=== PATIENT | female | born 1995 | race Caucasian/White ===

== ENCOUNTER 2017-03-21 21:46 | Emergency (ER) | payer OTHER ==
[~2017-03-21] VITALS: Ht 157.5 cm; Wt 49.5 kg
[2017-03-21 22:02] VITALS: Ht 157.5 cm; Wt 49.5 kg
[2017-03-21] MEDS ORDERED: HC1C30 TOP (22:59)
[2017-03-21] MEDS ORDERED: BEN25 PO (22:59)
--- NOTE | 2017-03-21 23:03 | ERD ---
ER Documentation Chief Complaint Date/Time DATE: 03/21/17 TIME: 23:01 Chief Complaint few rash comes and goes HPI 21-year-old female presents with multiple localized rashes to her upper extremities and lower extremities that she has had for about 3 days. She states at rest she has no itchiness when she touches of the itch. She denies any new soaps foods or irritants that she can think of. She denies any fever. She denies any swelling of her lips or tongue or any respiratory distress. She has not tried any medications for this. ROS All systems reviewed and are negative except as per history of present illness. Medications Home Meds Active Scripts Hydrocortisone* Topical (Hydrocortisone* Topical) 1%-28.35 Gm Cream..g., 1 APPLIC TOP Q6 Y for ITCHING, #1 TUB Prov:AGAPITO LIAO PA-C 03/21/17 Diphenhydramine Hcl* (Benadryl*) 25 Mg Cap, 25 MG PO Q6, #30 CAP Prov:AGAPITO LIAO PA-C 03/21/17 PMhx/Soc Medical and Surgical Hx: pt denies Medical Hx, pt denies Surgical Hx Hx Alcohol Use: No Hx Substance Use: No Hx Tobacco Use: No Smoking Status: Never smoker FmHx Family History: No diabetes Physical Exam Vitals Vital Signs Date Time Temp Pulse Resp B/P Pulse Ox O2 Delivery O2 Flow Rate FiO2 03/21/17 22:02 97.7 60 18 111/81 97 Physical Exam General: well developed, well nourished, alert, nontoxic, no distress Head: normocephalic, atraumatic Oropharynx: no tonsilar erythema or edema, uvula midline, no exudates, no kissing tonsils, no drooling Respiratory: Clear to auscaultation bilaterally, speaks in full sentences, no use of accesory muscles or labored breathing, no rales, ronchi, or wheezing Cardiovascular: RRR, No murmurs Extremities: moving all extremities normally, normal gait, no edema Skin: Multiple small localized bug bite-like lesions on the upper and lower extremities, blanchable, no erythema or tenderness Procedures/MDM 21-year-old presents with rashes that are consistent with bug bites. Her vital signs are normal and there is no signs of respiratory distress or anaphylaxis. She was given a prescription for Benadryl and hydrocortisone cream to apply. The mother wanted us to do blood work however he explained to them that there is no indication for blood work at this time as it will not give any results as to what this rash is. Recommended she follow with dermatology if symptoms not resolved. Recommended this patient follow up with her primary care doctor within 48 hours or return to the emergency room for any worsening of symptoms. However this time I do believe there is suitable for outpatient management. I answered all their questions and they agreed with the plan and were discharged home. Departure Diagnosis: Primary Impression: Rash Condition: Stable Patient Instructions: Self-Care for Skin Rashes Additional Instructions: Call your primary care doctor TOMORROW for an appointment during the next 1-2 days.See the doctor sooner or return here if your condition worsens before your appointment time. AGAPITO LIAO PA-C Mar 21, 2017 23:03
== END 2017-03-21 23:08 | disposition home or self-care (01) ==
LOC: FTE 21:46
DX: R21 Rash and other nonspecific skin eruption (principal)
CPT/HCPCS: 99283